=== PATIENT | male | born 1955 | race Caucasian/White ===

== ENCOUNTER → 2017-01-23 | Outpatient (CLI) | payer BC | LOC: OD 09:17 | PROVIDERS: ATTEND Family Medicine | DX: M54.2 Cervicalgia (principal); M54.5 Low back pain; M50.322 Other cervical disc degeneration at C5-C6 level; M51.36 Other intervertebral disc degeneration, lumbar region | CPT/HCPCS: 72050; 72110 ==

== ENCOUNTER → 2019-02-03 | Outpatient (CLI) | payer BC ==
--- NOTE | 2019-02-03 13:33 | RADIOLOGY REPORT (SQ) ---
EXAM DESCRIPTION: FOOT LEFT COMPLETE COMPLETED DATE/TIME: 02/03/2019 10:09 am REASON FOR STUDY: LEFT FOOT PAIN M79.672 PAIN IN LEFT FOOT COMPARISON: None. NUMBER OF VIEWS: Three views. TECHNIQUE: AP, lateral and oblique without weight bearing radiographic images acquired of the left f oot. LIMITATIONS: None. FINDINGS: MINERALIZATION: Normal. BONES: No acute fracture or dislocation. No worrisome bone lesions. No significant osteophytes. JOINTS: Degenerative spurring talonavicular joint best visualized on the lateral projection. SOFT TISSUES: No swelling. No calcifications. OTHER: Anterior and posterior heel spurs. IMPRESSION: Degenerative spurring not talonavicular joint. Heel spurs. TECHNICAL DOCUMENTATION: JOB ID: [id number] [employer]- All Rights Reserved Reading location - IP/workstation name: [email or web address]
== END ==
LOC: OD 09:53
PROVIDERS: ATTEND Family Medicine
DX: M77.52 Other enthesopathy of left foot and ankle (principal); M79.672 Pain in left foot

== ENCOUNTER → 2019-11-22 | Outpatient (CLI) | payer BC, MEDICARE ==
--- NOTE | 2019-11-22 14:21 | RADIOLOGY REPORT (SQ) ---
EXAM DESCRIPTION: CT ABD/PELVIS WITH IV ORAL COMPLETED DATE/TIME: 11/22/2019 1:47 pm REASON FOR STUDY: LOWER ABDOMINAL PAIN, UNSPECIFIED R10.30 LOWER ABDOMINAL PAIN, UNSPECIFIED K57.92 DVTRCLI OF INTEST, PART UNSP, W/O PERF OR ABSCESS W/O COMPARISON: None. TECHNIQUE: CT scan of the abdomen and pelvis performed using helical scanning technique with dynamic intravenous contrast injection. No oral contrast. Images reviewed with lung, soft tissue, and bone windows. Reconstructed coronal and sagittal MPR images reviewed. Delayed images for evaluation of the urinary system also acquired. All images stored on PACS. All CT scanners at this facility use dose modulation, iterative reconstruction, and/or weight based d osing when appropriate to reduce radiation dose to as low as reasonably achievable (ALARA). [facility]: Dose Right [facility]: CareDose [facility]: Dose Right [facility]: Teradose 4D [facility]: [place] CONTRAST TYPE AND DOSE: Contrast/concentration: Isovue 350.00 mg/ml; Total Contrast Delivered: 99.0 ml; Total Saline Delivered: 66.0 ml RENAL FUNCTION: Creatinine 0.75 milligrams/deciliter RADIATION DOSE: CT Rad equipment meets quality standard of care and radiation dose reduction techniq ues were employed. CTDIvol: 13.4 - 13.5 mGy. DLP: 2470 mGy-cm.. LIMITATIONS: None. FINDINGS: LOWER CHEST: Bibasilar atelectasis. There is no basilar consolidation or pleural effusion . There is no pericardial effusion. LIVER: The relative hypoattenuation of hepatic parenchyma compared to the splenic parenchyma on the p ortal venous phase is suggestive of hepatic steatosis. The portal veins are patent. There is no hepa tic mass. SPLEEN: No splenomegaly or splenic mass. PANCREAS: No acute abnormality. GALLBLADDER: No abnormality that is apparent on CT. ADRENAL GLANDS: No mass or asymmetry. RIGHT KIDNEY AND URETER: Mild to moderate hydronephrosis and hydroureters associated with inflammator y stranding of the periureteral fat in. There is no solid mass, nephrolithiasis or ureterolithiasis. On the delayed series, there is contrast within the distal left ureter down to the level of the ure terovesicular junction without a definite intraluminal filling defect. LEFT KIDNEY AND URETER: 1.9 x 1.3 cm water attenuation cyst in the upper pole of the kidney. There i s a duplex collecting system with moderate hydronephrosis and hydroureter. As on the contralateral s elsy, there is associated stranding of the periureteral fat. There is no solid mass, nephrolithiasis or ureterolithiasis. Opacification of the ureters on the delayed series is limited. AORTA AND VESSELS: No aneurysm of the abdominal aorta. RETROPERITONEUM: Nonspecific borderline enlarged lymph nodes clustered around the michael hepatis that measure up to 11 mm in short axis diameter. BOWEL AND PERITONEAL CAVITY: Colonic diverticulosis without diverticulitis. There is no bowel obstru ction, bowel wall thickening or pericolonic/ perienteric inflammation. There is no mesenteric adenop athy, free intraperitoneal fluid or mesenteric/ omental inflammation. APPENDIX: Unable to identify the appendix. PELVIS: The prostate gland is enlarged and it measures 7 x 6.4 cm. The urinary bladder is distended. There is no urinary bladder wall thickening or pericystic stranding. ABDOMINAL WALL: No masses or hernias BONES: Nonspecific lucent lesions within the L3 and L4 vertebral bodies - attention on follow-up CTs is recommended. OTHER: No other finding. IMPRESSION: 1. [id number] right and moderate left hydroureter and hydronephrosis without an ur eteral calculus or mass. The urinary bladder is distended and the prostate gland is enlarged. Clini rosalba correlation for signs and symptoms of bladder outlet obstruction is recommended. 2. 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 3. Colonic diverticulosis without diverticulitis. TECHNICAL DOCUMENTATION: JOB ID: [id number] Quality ID # [id number]: Final reports with documentation of one or more dose reduction techniques (e.g., Au tomated exposure control, adjustment of the mA and/or kV according to patient size, use of iterative reconstruction technique) 2010 [employer]- All Rights Reserved Reading location - IP/workstation name: [email or web address]
== END ==
LOC: RAD 10:49
PROVIDERS: ATTEND Family Medicine
DX: K57.92 Diverticulitis of intestine, part unspecified, without perforation or abscess without bleeding (principal); R10.30 Lower abdominal pain, unspecified; N13.30 Unspecified hydronephrosis
CPT/HCPCS: 74177

== ENCOUNTER 2020-01-07 09:31 | Emergency (ER) | payer BC ==
--- NOTE | 2020-01-07 09:54 | ER Document Report ---
ED Medical Screen (RME) - General Chief Complaint: Post Surgical Pain Stated Complaint: POST SURGICAL PAIN Time Seen by Provider: 01/07/20 09:46 Primary Care Provider: ALDO MCKINLEY MD [Primary Care Provider] - Follow up as needed Mode of Arrival: Ambulatory Information source: Patient Notes: Patient presents complaining of left groin pain for the past 3 days. Patient is recently status post prostatectomy on 12/30/2019. Patient denies any fever. Patient denies any nausea or vomiting. Patient reports only mild dysuria. I have greeted and performed a rapid initial assessment of this patient. A comprehensive ED assessment and evaluation of the patient, analysis of test results and completion of the medical decision making process will be conducted by additional ED providers. TRAVEL OUTSIDE OF THE [place] IN LAST 30 DAYS: No - Related Data Allergies/Adverse Reactions: No Known Allergies Allergy (Verified 01/07/20 09:42) Home Medications: lisinopril, flomax, celebrex, finasteride, ibuprofen Past Medical History - Social History Chew tobacco use (# tins/day): No Frequency of alcohol use: None Drug Abuse: None Pulmonary Medical History: Denies: Hx Tuberculosis Past Surgical History: Denies: Hx Pacemaker - Immunizations Hx Diphtheria, Pertussis, Tetanus Vaccination: Yes Physical Exam - Vital signs Vitals: Temp Pulse Resp BP Pulse Ox 98.2 F 78 18 173/77 H 95 01/07/20 09:40 01/07/20 09:40 01/07/20 09:40 01/07/20 09:40 01/07/20 09:40 - General General appearance: Appears well, Alert Notes: Left groin pain Course - Vital Signs Vital signs: Temp Pulse Resp BP Pulse Ox 98.2 F 78 18 173/77 H 95 01/07/20 09:40 01/07/20 09:40 01/07/20 09:40 01/07/20 09:40 01/07/20 09:40 Doctor's Discharge - Discharge Referrals: ALDO MCKINLEY MD [Primary Care Provider] - Follow up as needed
[2020-01-07] MEDS ORDERED: FENTANYL CITRATE INJ/PF 100 MCG/2 ML AMPUL IV ONE (10:26)
--- NOTE | 2020-01-07 10:29 | ER Document Report ---
ED General - General Chief Complaint: Post Surgical Pain Stated Complaint: POST SURGICAL PAIN Time Seen by Provider: 01/07/20 09:46 Primary Care Provider: ALDO MCKINLEY MD [Primary Care Provider] - Follow up as needed Mode of Arrival: Ambulatory Notes: Patient is a 64-year-old white male who underwent prostatectomy last who presents today with a complaint of left groin and testicular pain that began on Friday when they removed the catheter. He states every time he urinates he gets some relief of the pain. He reports that the pain does seem to be improving since Friday but he called his urologist, Dr. Crockett who was concerned and sent him for evaluation and scan. Patient denies any bloody stools or blood per rectum. Denies any visible bloody urination. Denies pain with urination. Denies any abdominal pain, nausea, vomiting or diarrhea. TRAVEL OUTSIDE OF THE [place] IN LAST 30 DAYS: No - Related Data Allergies/Adverse Reactions: No Known Allergies Allergy (Verified 01/07/20 09:42) Home Medications: lisinopril, flomax, celebrex, finasteride, ibuprofen Past Medical History - General Information source: Patient - Social History Smoking Status: Never Smoker Chew tobacco use (# tins/day): No Frequency of alcohol use: None Drug Abuse: None Family History: None Patient has suicidal ideation: No Patient has homicidal ideation: No Pulmonary Medical History: Denies: Hx Tuberculosis Past Surgical History: Denies: Hx Pacemaker - Immunizations Hx Diphtheria, Pertussis, Tetanus Vaccination: Yes Review of Systems - Review of Systems Male Genitourinary: Testicular pain -: Yes All other systems reviewed and negative Physical Exam - Vital signs Vitals: Temp Pulse Resp BP Pulse Ox 98.2 F 78 18 173/77 H 95 01/07/20 09:40 01/07/20 09:40 01/07/20 09:40 01/07/20 09:40 01/07/20 09:40 - General General appearance: Appears well, Alert In distress: None - Respiratory Respiratory status: No respiratory distress Chest status: Nontender Breath sounds: Normal Chest palpation: Normal - Cardiovascular Rhythm: Regular Heart sounds: Normal auscultation - Abdominal Inspection: Normal Distension: No distension Bowel sounds: Normal Tenderness: Nontender Organomegaly: No organomegaly - Rectal Tenderness: No Prostate: Surgically absent - Genitourinary Tenderness: Other - Mild left scrotal swelling and tenderness. No visible erythema or abscess collection - Neurological Neuro grossly intact: Yes Cognition: Normal Orientation: AAOx4 Adrian Coma Scale Eye Opening: Spontaneous Adrian Coma Scale Verbal: Oriented Adrian Coma Scale Motor: Obeys Commands [place] Coma Scale Total: 15 Speech: Normal - Psychological Associated symptoms: Normal affect, Normal mood - Skin Skin Temperature: Warm Skin Moisture: Dry Skin Color: Normal Course - Re-evaluation Re-evalutation: 01/07/20 12:[address] Martines at this time, the urologist documentation manager for Dr. Crockett. Discussed the findings with him. He recommended patient be placed on Bactrim twice daily x14 days and call Dr. Crockett on Friday for follow-up. He advised urinary findings are likely normal status post TURP and we would need to pend a urine culture. He advised patient otherwise appropriate for discharge and outpatient follow-up. 01/07/20 12:59 Reevaluation at this time, patient is resting comfortably in the room, pain is improved. I discussed plan with the patient who is in agreement. Counseled him regarding the importance of outpatient follow-up on Friday with Dr. Crockett. Advised to return here or any ER immediately with any new, persistent or worsening symptoms. He verbalized understood and agreed. - Vital Signs Vital signs: Temp Pulse Resp BP Pulse Ox 98.2 F 78 18 173/77 H 95 01/07/20 09:40 01/07/20 09:40 01/07/20 09:40 01/07/20 09:40 01/07/20 09:40 - Laboratory Result Diagrams: 01/07/20 10:19 01/07/20 10:19 Laboratory results interpreted by me: 01/07/20 01/07/20 01/07/20 10:19 10:19 10:19 RBC 4.29 L Lymph % (Auto) 12.0 L Sodium 136.8 L Urine Protein 100 H Urine Blood LARGE H Ur Leukocyte Esterase LARGE H Discharge - Discharge Clinical Impression: Orchitis Hydrocele Qualifiers: Hydrocele type: other Qualified Code(s): N43.2 - Other hydrocele Condition: Stable Disposition: HOME, SELF-CARE Instructions: Hydrocele ([facility]) Additional Instructions: Please follow-up with your urologist, Dr. Crockett on [place] morning. Return here or any ER immediately with any new, persistent or worsening symptoms. Prescriptions: Sulfamethoxazole/Trimethoprim [Bactrim Ds Tablet] 1 each PO BID #28 tablet Hydrocodone/Acetaminophen [[employer] 5-325 mg Tablet] 1 tab PO Q6 PRN #12 tablet PRN Reason: Referrals: ALDO MCKINLEY MD [Primary Care Provider] - Follow up as needed
[2020-01-07 10:39] LABS: ABSOLUTE EOSINOPHILS # (AUTO) 0.3 10^3/uL (0.0-0.6); ABSOLUTE LYMPHOCYTES (AUTO) 1.2 10^3/uL (0.5-4.7); ABSOLUTE MONOCYTES (AUTO) 1.2 10^3/uL (0.1-1.4); ABSOLUTE NEUT (AUTO) 7.6 10^3/uL (1.7-8.2); BASOPHILS % (AUTO) 0.5 % (0-2); EOSINOPHILS % (AUTO) 3.2 % (0-6); HEMOGLOBIN 13.7 g/dL (13.5-17.0); MEAN CORPUSCULAR HGB CONC 34.2 g/dL (32.0-36.0); MEAN CORPUSCULAR VOLUME 93 fl (80-97); MONOCYTES % (AUTO) 11.2 % (3-13); PLATELET COUNT 258 10^3/uL (150-450); RED BLOOD COUNT 4.29 10^6/uL (4.35-5.55); SEGMENTED NEUTROPHILS % (AUTO) 73.1 % (42-78); TOTAL CELLS COUNTED % (AUTO) 100 %; WHITE BLOOD COUNT 10.4 10^3/uL (4.0-10.5)
[2020-01-07 10:43] LABS: APPEARANCE,URINE CLOUDY; BILIRUBIN,URINE NEGATIVE (NEGATIVE); COLOR,URINE YELLOW; GLUCOSE, URINE NEGATIVE (NEGATIVE); KETONES,URINE NEGATIVE (NEGATIVE); LEUKOCYTE ESTERASE,URINE LARGE (NEGATIVE); NITRITE,URINE NEGATIVE (NEGATIVE); PROTEIN,URINE 100 mg/dL (NEGATIVE); URINE SPECIFIC GRAVITY 1.004; UROBILINOGEN,URINE NEGATIVE mg/dL (<2.0)
[2020-01-07 10:55] LABS: ANION GAP 9 (5-19); BLOOD UREA NITROGEN 10 mg/dL (7-20); CALCIUM 9.3 mg/dL (8.4-10.2); CARBON DIOXIDE 28 mmol/L (22-30); CHLORIDE 100 mmol/L (98-107); GLUCOSE 100 mg/dL (75-110); POTASSIUM 4.4 mmol/L (3.6-5.0)
[2020-01-07] MEDS ORDERED: CEFTRIAXONE 1 GM/D5W RTU 1 GM/50 ML RTUPB IV ONE (11:51)
--- NOTE | 2020-01-07 11:52 | RADIOLOGY REPORT (SQ) ---
EXAM DESCRIPTION: CT ABD/PELVIS WITH IV ONLY COMPLETED DATE/TIME: 01/07/2020 11:37 am REASON FOR STUDY: pain s/p prostatectomy COMPARISON: 11/22/2019 TECHNIQUE: CT scan of the abdomen and pelvis performed using helical scanning technique with dynamic intravenous contrast injection. No oral contrast. Images reviewed with lung, soft tissue, and bone windows. Reconstructed coronal and sagittal MPR images reviewed. Delayed images for evaluation of the urinary system also acquired. All images stored on PACS. All CT scanners at this facility use dose modulation, iterative reconstruction, and/or weight based d osing when appropriate to reduce radiation dose to as low as reasonably achievable (ALARA). [facility]: Dose Right [facility]: CareDose [facility]: Dose Right [facility]: Teradose 4D [facility]: [employer] CONTRAST TYPE AND DOSE: contrast/concentration: Isovue 350.00 mg/ml; Total Contrast Delivered: 100.0 ml; Total Saline Delivered: 62.1 ml RENAL FUNCTION: BUN 10, creatinine 0.58 RADIATION DOSE: CT Rad equipment meets quality standard of care and radiation dose reduction techniq ues were employed. CTDIvol: 13.4 - 17.6 mGy. DLP: 1773 mGy-cm.. LIMITATIONS: None. FINDINGS: LOWER CHEST: No significant findings. No nodules or infiltrates. LIVER: Normal size. No masses. No dilated ducts. SPLEEN: Normal size. No focal lesions. PANCREAS: No masses. No significant calcifications. No adjacent inflammation or peripancreatic fluid collections. Pancreatic duct not dilated. GALLBLADDER: No identified stones by CT criteria. No inflammatory changes to suggest cholecystitis. ADRENAL GLANDS: No significant masses or asymmetry. RIGHT KIDNEY AND URETER: No solid masses. No significant calcifications. No hydronephrosis or hyd roureter. LEFT KIDNEY AND URETER: No solid masses. No significant calcifications. No hydronephrosis or hydr oureter. Small simple left renal cyst. 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 AORTA AND VESSELS: No aneurysm. No dissection. Renal arteries, SMA, celiac without stenosis. RETROPERITONEUM: No retroperitoneal adenopathy, hemorrhage or masses. BOWEL AND PERITONEAL CAVITY: No masses or inflammatory changes. No free fluid or peritoneal masses. Numerous diverticuli. No acute diverticulitis. APPENDIX: Normal. PELVIS: The patient is recently status post TURP. Contrast spills into the TURP defect from the blad glenis. No extravasation outside of the bladder. ABDOMINAL WALL: No masses. No hernias. BONES: No significant or acute findings. OTHER: No other significant finding. IMPRESSION: Recent postsurgical changes. The patient has undergone a TURP procedure since prior exa m. No hydronephrosis. No unexpected findings at this time. COMMENT: This report was called to Dr. Crockett at11:47 on 01/07/2020. TECHNICAL DOCUMENTATION: JOB ID: [id number] Quality ID # [id number]: Final reports with documentation of one or more dose reduction techniques (e.g., Au tomated exposure control, adjustment of the mA and/or kV according to patient size, use of iterative reconstruction technique) 2010 [employer]- All Rights Reserved Reading location - IP/workstation name: [email or web address]
--- NOTE | 2020-01-07 12:36 | RADIOLOGY REPORT (SQ) ---
EXAM DESCRIPTION: U/S SCROTUM W/DOPPLER COMPLETED DATE/TIME: 01/07/2020 12:04 pm REASON FOR STUDY: left scrotal pain s/p prostatectomy COMPARISON: None. TECHNIQUE: Static and realtime romero scale imaging of the scrotum and testes. Selected color Doppler and spectral images recorded to document blood flow. LIMITATIONS: None. FINDINGS: RIGHT: TESTICLE: Normal size. Normal echotexture. Normal blood flow. No mass. EPIDIDYMIS: Small epididymal cyst. HYDROCELE OR VARICOCELE: Moderate right-sided hydrocele. HERNIA OR EXTRA-TESTICULAR MASS: No. OTHER: No other significant finding. LEFT: TESTICLE: Normal size. Normal echotexture. Increased vascularity. No mass. EPIDIDYMIS: Heterogeneous echogenicity. HYDROCELE OR VARICOCELE: Small left-sided varicocele. There is a large left-sided hydrocele. HERNIA OR EXTRA-TESTICULAR MASS: No. OTHER: No other significant finding. IMPRESSION: Bilateral hydroceles left greater than right. Increased vascularity to the left testicl e. This raises the possibility of orchitis. There is some heterogeneous echogenicity in the left ep ididymis as well. TECHNICAL DOCUMENTATION: JOB ID: [id number] 2010 [employer]- All Rights Reserved Reading location - IP/workstation name: [email or web address]
[2020-01-07 13:14] VITALS: BP 174/68
== END 2020-01-07 13:25 | disposition home or self-care (01) ==
LOC: ER 09:31
DX: G89.18 Other acute postprocedural pain (principal); N43.2 Other hydrocele; N45.2 Orchitis; R10.30 Lower abdominal pain, unspecified
CPT/HCPCS: 99284; 96375; 96365; 36415; 87086; 85025; 87088; 80048; 81001; 87186; 76870; 93976; 74177; J3010; J0696

== ENCOUNTER 2020-10-26 14:05 | Emergency (ER) | payer BC ==
--- NOTE | 2020-10-26 14:35 | ER Document Report ---
ED Medical Screen (RME) - General Stated Complaint: LEFT ARM PAIN Primary Care Provider: ALDO MCKINLEY MD [Primary Care Provider] - Follow up as needed TRAVEL OUTSIDE OF THE [place] IN LAST 30 DAYS: No - HPI Notes: 10/26/20 14:32 Rapid Medical Exam HPI: This is a 65-year-old male who presents to the ER complaining of left-sided chest pain that began around 1145 this morning. Patient says he received a Covid vaccination in his left deltoid yesterday. 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 Patient has pain is improving now. He had no other associated symptoms such as diaphoresis, nausea, shortness of breath. No cardiac history. Cardiac risk factors include hypert ension and family history. Physical Exam: GENERAL: Well-appearing, well-nourished and in no acute distress. HEAD: Atraumatic, normocephalic. ENT: Moist mucous membranes. RESP: Respirations even and unlabored CV- Regular rate. NEURO: No focal neurological deficits. Moves all extremities spontaneously and on command. My involvement in this patients care was limited to a rapid initial assessment. A comprehensive ED assessment and evaluation of the patient, analysis of test results, treatment, and completion of the medical decision making process will be performed by other ER providers. - Related Data Allergies/Adverse Reactions: No Known Allergies Allergy (Verified 01/07/20 09:42) Past Medical History Pulmonary Medical History: Denies: Hx Tuberculosis Past Surgical History: Denies: Hx Pacemaker - Immunizations Hx Diphtheria, Pertussis, Tetanus Vaccination: Yes Doctor's Discharge - Discharge Referrals: ALDO MCKILNEY MD [Primary Care Provider] - Follow up as needed
[2020-10-26 15:14] LABS: ABSOLUTE EOSINOPHILS # (AUTO) 0.1 10^3/uL (0.0-0.6); ABSOLUTE LYMPHOCYTES (AUTO) 0.8 10^3/uL (0.5-4.7); ABSOLUTE MONOCYTES (AUTO) 0.9 10^3/uL (0.1-1.4); BASOPHILS % (AUTO) 0.4 % (0-2); EOSINOPHILS % (AUTO) 1.1 % (0-6); HEMATOCRIT 46.7 % (37.9-51.0); HEMOGLOBIN 15.9 g/dL (13.5-17.0); LYMPHOCYTES % (AUTO) 10.8 % (13-45); MEAN CORPUSCULAR HEMOGLOBIN 31.5 pg (27.0-33.4); MEAN CORPUSCULAR HGB CONC 34.1 g/dL (32.0-36.0); MEAN CORPUSCULAR VOLUME 93 fl (80-97); PLATELET COUNT 231 10^3/uL (150-450); RED BLOOD COUNT 5.04 10^6/uL (4.35-5.55); RED CELL DISTRIBUTION WIDTH 13.7 % (11.5-14.0); SEGMENTED NEUTROPHILS % (AUTO) 76.7 % (42-78); TOTAL CELLS COUNTED % (AUTO) 100 %; WHITE BLOOD COUNT 7.8 10^3/uL (4.0-10.5)
[2020-10-26 15:31] LABS: ALBUMIN 4.2 g/dL (3.5-5.0); ALKALINE PHOSPHATASE 44 U/L (38-126); ASPARTATE AMINO TRANSFERASE 28 U/L (17-59); BILIRUBIN,DIRECT 0.2 mg/dL (0.0-0.4); BILIRUBIN,TOTAL 0.7 mg/dL (0.2-1.3); BLOOD UREA NITROGEN 12 mg/dL (7-20); CALCIUM 9.3 mg/dL (8.4-10.2); CARBON DIOXIDE 31 mmol/L (22-30); CHLORIDE 100 mmol/L (98-107); GLUCOSE 114 mg/dL (75-110); POTASSIUM 4.2 mmol/L (3.6-5.0); TOTAL PROTEIN 7.6 g/dL (6.3-8.2)
[2020-10-26 15:34] LABS: ANION GAP 4 (5-19)
--- NOTE | 2020-10-26 15:41 | RADIOLOGY REPORT (SQ) ---
EXAM DESCRIPTION: CHEST 2 VIEWS IMAGES COMPLETED DATE/TIME: 10/26/2020 3:11 pm REASON FOR STUDY: left sided chest pain COMPARISON: 2011 EXAM PARAMETERS: NUMBER OF VIEWS: two views TECHNIQUE: Digital Frontal and Lateral radiographic views of the chest acquired. RADIATION DOSE: NA LIMITATIONS: none FINDINGS: LUNGS AND PLEURA: No opacities, masses or pneumothorax. No pleural effusion. MEDIASTINUM AND HILAR STRUCTURES: No masses or contour abnormalities. HEART AND VASCULAR STRUCTURES: Heart normal size. No evidence for failure. BONES: No acute findings. HARDWARE: None in the chest. OTHER: No other significant finding. IMPRESSION: NO ACUTE RADIOGRAPHIC FINDING IN THE CHEST. TECHNICAL DOCUMENTATION: JOB ID: [id number] [address]- All Rights Reserved Reading location - IP/workstation name: [email or web address]
--- NOTE | 2020-10-26 17:16 | ER Document Report ---
ED General - General Chief Complaint: Chest Pain Stated Complaint: LEFT ARM PAIN Time Seen by Provider: 10/26/20 16:41 Primary Care Provider: ALDO MCKINLEY MD [Primary Care Provider] - Follow up as needed TRAVEL OUTSIDE OF THE [place] IN LAST 30 DAYS: No - HPI Notes: Patient is a 65-year-old male who presents emergency department for evaluation of left-sided chest pain. The patient received a Covid vaccine yesterday. He states that yesterday he felt his shoulder became stiff. He admits to a "vigorous" workout, in an effort to keep his joint from getting stiff. 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 It further worsened when he was lifting his trumpet. He went to the school nurse, who found his blood pressure to be elevated, she recommended that he come to the ED for further evaluation. His pain is overall improved. Is worsened by movement. He denies any associated shortness of breath, diaphoresis, near syncope, palpitations. He states he has had a stress test in the past, he does not remember exactly when, states it was negative. - Related Data Allergies/Adverse Reactions: No Known Allergies Allergy (Verified 01/07/20 09:42) Home Medications: finisteride, liprinosil Past Medical History - General Information source: Patient - Social History Smoking Status: Never Smoker Frequency of alcohol use: None Drug Abuse: None Family History: CAD Patient has homicidal ideation: No - Past Medical History Cardiac Medical History: Reports: Hx Hypertension Pulmonary Medical History: Denies: Hx Tuberculosis Renal/ Medical History: Reports: Hx Benign Prostatic Hyperplasia Past Surgical History: Denies: Hx Pacemaker - Immunizations Hx Diphtheria, Pertussis, Tetanus Vaccination: Yes Review of Systems - Review of Systems Constitutional: No symptoms reported EENT: No symptoms reported Cardiovascular: See HPI Respiratory: No symptoms reported Gastrointestinal: No symptoms reported Genitourinary: No symptoms reported Musculoskeletal: See HPI Skin: No symptoms reported Neurological/Psychological: No symptoms reported Physical Exam - Vital signs Vitals: Pulse Ox 98 10/26/20 14:31 - Notes Notes: Vital signs reviewed, please refer to chart. Head is normocephalic, atraumatic. Pupils equal round, reactive to light. Neck is supple without meningismus. Heart is regular rate and rhythm. Lungs are clear to auscultation bilaterally. Examination of the left upper extremity yields obvious sign from recent IM injection in the proximal deltoid. There is minimal tenderness overlying, but no significant edema, induration, erythema noted. Abdomen is soft, nontender, normoactive bowel sounds throughout. Extremities without cyanosis, clubbing. Posterior calves are nontender. Peripheral pulses are equal. Skin is warm and dry. Patient is awake, alert, neurological exam is nonfocal. Course - Re-evaluation Re-evalutation: 10/26/20 17:36 Patient presents emergency department for evaluation of chest pain. It is his only symptom. It seems to be exacerbated by movement. It correlates to musculoskeletal soreness in the upper arm. Patient's initial troponin is undete ctable. EKG shows right bundle branch block with no old studies available for comparison. Patient was notified of this right bundle branch block. Otherwise he is comfortable. His work-up is unremarkable. Pending normal second troponin, patient will be sent home to follow-up closely with Dr. Mckinley. He is amenable to this plan. 10/26/20 18:59 Repeat troponin undetectable. Patient sent home with close follow-up. - Vital Signs Vital signs: Temp Pulse Resp BP Pulse Ox 98.1 F 85 18 159/70 H 98 10/26/20 14:47 10/26/20 14:47 10/26/20 17:01 10/26/20 17:01 10/26/20 16:48 - Laboratory Results Result Diagrams: 10/26/20 14:50 10/26/20 14:50 Laboratory Results Interpreted: 10/26/20 10/26/20 14:50 14:50 Lymph % (Auto) 10.8 L Sodium 135.4 L Carbon Dioxide 31 H Anion Gap 4 L Glucose 114 H Critical Laboratory Results Reviewed: No Critical Results - Radiology Results Radiology Results Interpreted: 10/26/20 17:37 Chest X-Ray 10/26/20 14:31 IMPRESSION: NO ACUTE RADIOGRAPHIC FINDING IN THE CHEST. Critical Radiology Results Reviewed: No Critical Results - EKG Interpretation by Me Additional EKG results interpreted by me: 10/26/20 17:37 Sinus mechanism with a rate of 83 bpm. Left axis deviation. Right bundle branch block. No old studies available for comparison. Discharge - Discharge Clinical Impression: Musculoskeletal pain of left upper extremity, Abnormal EKG Chest pain Qualifiers: Chest pain type: unspecified Qualified Code(s): R07.9 - Chest pain, unspecified Condition: Stable Disposition: HOME, SELF-CARE Instructions: Chest Wall Pain ([facility]), Chest Pain of Unclear Cause ([facility]) Additional Instructions: It seems likely that most of your pain is musculoskeletal in nature. You do have an abnormal EKG. It is important that you follow-up closely with your primary care provider. If you develop worsening or new concerning symptoms of any sort, please return immediately to the emergency department for evaluation. Referrals: ALDO MCKINLEY MD [Primary Care Provider] - Follow up as needed
[2020-10-26 18:06] VITALS: BP 159/70
--- NOTE | 2020-10-26 20:02 | EKG REPORT ---
SEVERITY:- ABNORMAL ECG - SINUS RHYTHM RIGHT BUNDLE BRANCH BLOCK : Confirmed by: Mariya Moyer MD 26-Oct-2020 20:01:20
== END 2020-10-26 19:37 | disposition home or self-care (01) ==
LOC: ER 14:05
DX: R07.9 Chest pain, unspecified (principal); R94.31 Abnormal electrocardiogram [ECG] [EKG]; I45.10 Unspecified right bundle-branch block; M79.602 Pain in left arm; M25.512 Pain in left shoulder; Z79.899 Other long term (current) drug therapy; I10 Essential (primary) hypertension
CPT/HCPCS: 36415; 71046; 80053; 84484; 85025; 93005; 93010; 99285